=== PATIENT | female | born 1965 | race Caucasian/White ===

== ENCOUNTER 2018-03-13 09:06 | Outpatient (CLI) | END 2018-03-13 09:07 | disposition home or self-care (01) | LOC: LAB 09:06 | PROVIDERS: ATTEND Surgery Plastic and Reconstructive Surgery | DX: Z01.812 Encounter for preprocedural laboratory examination (principal); H02.409 Unspecified ptosis of unspecified eyelid | CPT/HCPCS: 36415; 80053; 81001; 85027; 85610; 85730; 87086 ==